=== PATIENT | male | born 1990 | race African-American/Black ===

== ENCOUNTER → 2020-06-22 | Outpatient (REF) | payer MEDICAID ==
[2020-06-22 13:04] LABS: BASO # 0.1 10^3/uL (0.0-0.2); BASO % 0.6 % (0.0-1.0); EOS # 0.2 10^3/uL (0.0-0.5); EOS % 2.3 % (0.0-3.0); HEMATOCRIT 46.5 % (42.0-52.0); HEMOGLOBIN 15.4 g/dl (13.5-17.5); LYMPH # 3.4 10^3/uL (1.5-5.0); MEAN CORPUSCULAR HEMOGLOBIN 28.7 pg (27.0-33.0); MEAN CORPUSCULAR HGB CONC 33.1 g/dl (32.0-36.5); MEAN CORPUSCULAR VOLUME 86.8 fl (80.0-96.0); MONO # 0.7 10^3/uL (0.0-0.8); MONO % 6.5 % (2.0-8.0); NEUTROPHILS # 5.9 10^3/uL (1.5-8.5); NEUTROPHILS % 57.2 % (36.0-66.0); PLATELET COUNT, AUTOMATED 323 10^3/uL (150-450); RED BLOOD COUNT 5.36 10^6/uL (4.30-6.10); WHITE BLOOD COUNT 10.3 10^3/uL (4.0-10.0)
[2020-06-22 13:52] LABS: ALBUMIN 4.3 GM/DL (3.2-5.2); ALT/SGPT 45 U/L (12-78); BILIRUBIN,TOTAL 0.3 MG/DL (0.2-1.0); BLOOD UREA NITROGEN 10 MG/DL (7-18); CALCIUM LEVEL 9.7 MG/DL (8.5-10.1); CARBON DIOXIDE LEVEL 26 MEQ/L (21-32); CHLORIDE LEVEL 106 MEQ/L (98-107); CHOLESTEROL LEVEL 185 MG/DL (<200); CHOLESTEROL RISK RATIO 5.441 (<5); CREATININE FOR GFR 1.26 MG/DL (0.70-1.30); GLOMERULAR FILTRATION RATE > 60.0 (>60); GLUCOSE, FASTING 84 MG/DL (70-100); HDL CHOLESTEROL 34 MG/DL (>40); LDL CHOLESTEROL 120 MG/DL (<100); NON-HDL-C 151 MG/DL; POTASSIUM SERUM 4.3 MEQ/L (3.5-5.1); SODIUM LEVEL 139 MEQ/L (136-145); TOTAL 25(OH) VITAMIN D 9.1 NG/ML (30.0-100.0); TRIGLYCERIDES LEVEL 155 MG/DL (<150)
[2020-06-22 14:30] LABS: HEPATITIS C VIRUS ABY INDEX < 0.0 INDEX (<0.8)
[2020-06-22 14:32] LABS: HIV 1&2 SCREEN CENTAUR NEGATIVE (NEGATIVE)
[2020-06-22 15:53] LABS: CHLAMYDIA DNA AMPLIFICATION POSITIVE (NEGATIVE); GC DNA AMPLIFICATION NEGATIVE (NEGATIVE)
== END ==
LOC: M LAB REF 12:31
PROVIDERS: ATTEND Pediatrics
DX: R30.9 Painful micturition, unspecified (principal)

== ENCOUNTER → 2020-08-24 | Outpatient (REF) | payer OTHER ==
[2020-08-24 14:53] LABS: CHLAMYDIA DNA AMPLIFICATION NEGATIVE (NEGATIVE); GC DNA AMPLIFICATION NEGATIVE (NEGATIVE)
== END ==
LOC: M LAB REF 12:12
PROVIDERS: ATTEND Pediatrics
DX: Z86.19 Personal history of other infectious and parasitic diseases (principal)

== ENCOUNTER → 2023-08-21 | Outpatient (REF) | payer OTHER ==
[2023-08-21 14:11] LABS: BASO % 0.4 % (0.0-1.0); EOS # 0.3 10^3/uL (0.0-0.5); EOS % 2.7 % (0.0-3.0); HEMATOCRIT 44.1 % (42.0-52.0); LYMPH # 3.2 10^3/uL (1.5-5.0); LYMPH % 29.7 % (24.0-44.0); MEAN CORPUSCULAR HEMOGLOBIN 29.6 pg (27.0-33.0); MEAN CORPUSCULAR VOLUME 87.2 fl (80.0-96.0); MONO # 0.7 10^3/uL (0.0-0.8); MONO % 6.4 % (2.0-8.0); NEUTROPHILS # 6.5 10^3/uL (1.5-8.5); NEUTROPHILS % 60.5 % (36.0-66.0); PLATELET COUNT, AUTOMATED 316 10^3/uL (150-450); RED BLOOD COUNT 5.06 10^6/uL (4.30-6.10); WHITE BLOOD COUNT 10.7 10^3/uL (4.0-10.0)
[2023-08-21 14:36] LABS: ALBUMIN 3.9 G/DL (3.2-5.2); ALKALINE PHOSPHATASE 68 U/L (46-116); ALT/SGPT 50 U/L (7.0-40); AST/SGOT 21 U/L (<34); BILIRUBIN,TOTAL 0.6 MG/DL (0.3-1.2); BLOOD UREA NITROGEN 9 MG/DL (9-23); CALCIUM LEVEL 9.2 MG/DL (8.5-10.1); CARBON DIOXIDE LEVEL 26 MMOL/L (20-31); CHLORIDE LEVEL 107 MMOL/L (98-107); CREATININE FOR GFR 1.13 MG/DL (0.70-1.30); GLOMERULAR FILTRATION RATE > 60.0 (>60); GLUCOSE, FASTING 74 MG/DL (60-100); POTASSIUM SERUM 4.2 MMOL/L (3.5-5.1); SODIUM LEVEL 141 MMOL/L (136-145); TOTAL PROTEIN 7.2 G/DL (5.7-8.2)
[2023-08-21 14:40] LABS: TOTAL 25(OH) VITAMIN D 7.1 NG/ML (20.0-100.0)
[2023-08-21 15:20] LABS: HEMOGLOBIN A1c 4.8 % (4.0-6.0)
== END ==
LOC: M LAB REF 12:57
PROVIDERS: ATTEND Pediatrics
DX: Z68.36 Body mass index [BMI] 36.0-36.9, adult (principal); D57.3 Sickle-cell trait; F17.210 Nicotine dependence, cigarettes, uncomplicated

== ENCOUNTER 2024-11-14 15:54 | Emergency (ER) | payer OTHER ==
[~2024-11-14] VITALS: Ht 170.2 cm; Wt 104.7 kg
[2024-11-14] MEDS ORDERED: AMOX500C PO (16:30)
[2024-11-14 21:14] VITALS: BP 135/71; TEMP 97.1; O2SAT 100
[2024-11-14] MEDS ORDERED: KETO-204 PO (22:55)
[2024-11-14] MEDS ORDERED: AMOX875T2 PO (22:55)
[2024-11-14] MEDS: KETOROLAC 30 MG/ML 1 ML VIAL IM ONE (23:01)
== END 2024-11-14 23:14 | disposition home or self-care (01) ==
LOC: M ED 15:54
DX: K08.89 Other specified disorders of teeth and supporting structures (principal); Z79.899 Other long term (current) drug therapy
CPT/HCPCS: 96372; 99283; J1885

== ENCOUNTER → 2024-12-03 | Outpatient (REF) | payer OTHER ==
[~2024-12-03] MED LIST: AMOX500C PO; AMOX875T2 PO; KETO-204 PO
[2024-12-03 14:18] LABS: ALT/SGPT 22.0 U/L (7.0-40); AST/SGOT 28.0 U/L (<34); CHOLESTEROL LEVEL 148.0 MG/DL (<200); CHOLESTEROL RISK RATIO 5.08 (<5); LDL CHOLESTEROL 74.9 MG/DL (<100); NON-HDL-C 118.9 MG/DL; TRIGLYCERIDES LEVEL 220.0 MG/DL (<150)
[2024-12-03 14:21] LABS: TESTOSTERONE 118.0 NG/DL (241-827)
[2024-12-03 14:27] LABS: ESTIMATED AVERAGE GLUCOSE 91.0 MG/DL (60-110)
== END ==
LOC: M LAB REF 13:06
PROVIDERS: ATTEND Pediatrics
DX: E66.812 Obesity, class 2 (principal); E78.5 Hyperlipidemia, unspecified; R37 Sexual dysfunction, unspecified; R74.01 Elevation of levels of liver transaminase levels

== ENCOUNTER → 2025-03-20 | Outpatient (CLI) | payer OTHER | LOC: M SOG 07:47 | PROVIDERS: ATTEND Neuromusculoskeletal Medicine, Sports Medicine | DX: M25.511 Pain in right shoulder (principal) ==